=== PATIENT | male | born 1935 | race Caucasian/White ===

== ENCOUNTER 2016-10-27 14:43 | Outpatient (CLI) | payer MEDICARE ==
--- NOTE | 2016-10-27 15:56 | RAD ---
3 VIEWS THORACIC SPINE: Date: 10/27/16 HISTORY: Upper back pain. FINDINGS: AP, lateral, and coned-down views of thoracic spine demonstrate vertebroplasty changes seen in the T 11 vertebral body. The rest of the thoracic spine is grossly unremarkable. No evidence of significan t fractures seen acutely. There is some height loss also seen in the T10 vertebral body possibly rep resenting T10 fracture. Age of this is indeterminate. Correlation with bone scan may be of use as MR I likely is not possible due to the indwelling cardiac defibrillator. IMPRESSION: 1. T11 vertebroplasty. 2. Some height loss seen in the superior end plate of T10. This may represent a T10 compression fra cture of indeterminate age. POS: [facility]
--- NOTE | 2016-10-27 15:57 | RAD ---
AP, LATERAL AND CONE DOWN VIEWS LUMBAR SPINE 10/27/16 Three views lumbar spine demonstrate high grade compression fracture of the L1 vertebral body. This was seen on the patient's previous flexion and extension views lumbar spine from 07/30/16. The extent in marked L1 fracture is not significantly changed. Anterior osteophytes seen in the mid lumbar spine. IMPRESSION: Severe L1 compression fracture not significantly changed since the previous exam. Some kyphotic keith ges also seen of the thoracolumbar junction. POS: [facility]
== END 2016-10-27 14:44 | disposition home or self-care (01) ==
LOC: MADRAD 14:43
PROVIDERS: ATTEND Family Medicine
DX: M54.9 Dorsalgia, unspecified (principal); M40.295 Other kyphosis, thoracolumbar region; Z91.81 History of falling
CPT/HCPCS: 72072; 72100

== ENCOUNTER 2017-01-05 08:11 | Outpatient (CLI) | payer MEDICARE ==
[2017-01-05 10:43] LABS: ALT (SGPT) 20 U/L (8-55); AST (SGOT) 19 U/L (5-34); Albumin 4.1 g/dL (3.4-4.8); Alkaline Phosphatase 81 U/L (40-150); Anion Gap 14 mmol/L (10-20); BUN (Urea Nitrogen) 23 mg/dL (8.4-25.7); Bilirubin, Total 0.8 mg/dL (0.2-1.2); Calc. Creatinine Clearance 0 mL/min (70-130); Calcium 8.7 mg/dL (7.8-10.44); Carbon Dioxide 25 mmol/L (23-31); Cardiac Risk 2.7 (Less than 4.5); Chloride 107 mmol/L (98-107); Cholesterol 99 mg/dl (< 200 Desired); Estimated GFR-MDRD Greater than 90; Globulin 2.3 g/dL (2.4-3.5); Glucose 129 mg/dL (83-110); HDL Cholesterol 37 mg/dL (>60 Neg Risk); LDL Cholesterol, Calculated 45 mg/dL; Protein, Total 6.4 g/dL (5.8-8.1); Sodium 142 mmol/L (136-145); Triglycerides 83 mg/dL (Less than 150)
== END 2017-01-05 08:12 | disposition home or self-care (01) ==
LOC: MADLAB 08:11
PROVIDERS: ATTEND Internal Medicine Cardiovascular Disease
DX: E78.00 Pure hypercholesterolemia, unspecified (principal); E03.9 Hypothyroidism, unspecified
CPT/HCPCS: 36415; 80053; 80061; 84443

== ENCOUNTER 2017-03-03 17:49 | Outpatient (CLI) | payer MEDICARE ==
--- NOTE | 2017-03-03 19:52 | RAD ---
CHEST PA AND LATERAL: 03/03/17 HISTORY: 81-year-old male with chest pain. COMPARISON: 06/18/16. FINDINGS: Left ICD. Postop midline sternotomy. Heart size is minimally enlarged. No confluent pneumonia, overt edema or pleural effusion. Mild stable chronic lung changes. IMPRESSION: Minimal cardiomegaly and minimal stable chronic lung changes., particularly in the bases. No conflue nt pneumonia, acute edema or other active process. Stable from prior study. POS: [facility]
--- NOTE | 2017-03-03 19:56 | RAD ---
RIGHT RIBS TWO VIEWS: 03/03/17 HISTORY: 81-year-old male with right rib pain following a fall. Two views of the right ribs demonstrate very minimally displaced fractures of the right 6th and 7th lateral ribs. No pneumothorax or pleural effusion. IMPRESSION: Right 6th and 7th very minimally displaced rib fractures without pneumothorax or pleural effusion. POS: [facility]
== END 2017-03-03 17:50 | disposition home or self-care (01) ==
LOC: MADRAD 17:49
PROVIDERS: ATTEND Family Medicine
DX: R07.89 Other chest pain (principal); S22.41XA Multiple fractures of ribs, right side, initial encounter for closed fracture; I51.7 Cardiomegaly
CPT/HCPCS: 71020

== ENCOUNTER 2017-04-13 11:11 | Outpatient (CLI) | payer MEDICARE ==
[2017-04-13 12:09] LABS: ALT (SGPT) 20 U/L (8-55); AST (SGOT) 20 U/L (5-34); Alkaline Phosphatase 105 U/L (40-150); Anion Gap 12 mmol/L (10-20); BUN (Urea Nitrogen) 19 mg/dL (8.4-25.7); Bilirubin, Total 0.9 mg/dL (0.2-1.2); Calc. Creatinine Clearance 0 mL/min (70-130); Calcium 8.9 mg/dL (7.8-10.44); Carbon Dioxide 27 mmol/L (23-31); Chloride 104 mmol/L (98-107); Estimated GFR-MDRD 90; Globulin 2.5 g/dL (2.4-3.5); Glucose 117 mg/dL (83-110); Potassium 4.4 mmol/L (3.5-5.1); Protein, Total 6.5 g/dL (5.8-8.1); Sodium 139 mmol/L (136-145)
[2017-04-13 12:59] LABS: Hemoglobin 12.6 g/dL (14.0-18.0); Lymphocytes 41 % (21-51); MDiff Complete? YES; Macrocytosis SLIGHT = 6-15 cells (100X) (0-5/hpf); Mean Corpuscular HGB CONC 33.2 g/dL (32.0-36.0); Mean Corpuscular Hemoglobin 38.5 pg (27.0-31.0); Mean Corpuscular Volume 115.8 fl (80.0-94.0); Mean Platelet Volume 7.8 fL (7.4-10.4); Monocytes 5 % (0-10); Neutrophil 51 % (42-75); PLT Morphology Comment Appears Adequate; Platelet Count 154 thou/uL (130-400); RBC Distribution Width 14.1 % (11.5-14.5); Reactive Lymphocytes 3 % (0-10); Red Blood Cell (RBC) Count 3.28 mill/uL (4.70-6.10); White Blood Cell (WBC) Count 6.9 thou/uL (4.8-10.8)
--- NOTE | 2017-04-13 15:31 | RAD ---
CHEST TWO VIEWS HISTORY: Shortness of breath. COMPARISON: 03/03/2017 FINDINGS: Stable left-sided transvenous defibrillator. Stable configuration of the cardiac silhouette. Stabl e sternotomy wires. There is redemonstration of right rib fractures, which demonstrate subtle perio steal reaction, suggesting healing. There is no pneumothorax. Small left-sided pleural effusion ca nnot be excluded given the presence of the veil-like opacity. Since the previous exam, there is an increased density projecting over the right hilum, which may be in the right central airway. The po ssibility of an aspirated crown from a tooth is suggested. Better interrogation with CT is recommen ded. Previous vertebroplasty change in the distal thoracic spine is noted. There is moderate loss of vertebral body height. IMPRESSION: 1. Healing right rib fractures. No pneumothorax. 2. Possible aspiration of a crown, which is now in the right central airway. Better interrogation with CT is recommended. CODE T POS: [facility]
== END 2017-04-13 11:12 | disposition home or self-care (01) ==
LOC: MADLAB 11:11
PROVIDERS: ATTEND Family Medicine
DX: J69.8 Pneumonitis due to inhalation of other solids and liquids (principal); R06.2 Wheezing; S22.41XD Multiple fractures of ribs, right side, subsequent encounter for fracture with routine healing
CPT/HCPCS: 36415; 71020; 80053; 85025

== ENCOUNTER 2017-06-20 10:55 | Outpatient (CLI) | payer MEDICARE ==
--- NOTE | 2017-06-20 15:39 | CT ---
CT OF BRAIN PERFORMED WITHOUT CONTRAST ENHANCEMENT: History: Slurred speech, weakness. Comparison: 07-09-16 FINDINGS: There is generalized ventricular and sulcal prominence with decreased attenuation of the periventric ular white matter consistent with some chronic ischemic white matter change. There are no signs of i ntracerebral hemorrhage or extraaxial fluid collections. Mastoid air cells are clear. There is mucos al change in the left maxillary sinus. IMPRESSION: No acute intracranial abnormalities. POS: [facility]
== END 2017-06-20 10:56 | disposition home or self-care (01) ==
LOC: MADCT 10:55
PROVIDERS: ATTEND Family Medicine
DX: R47.81 Slurred speech (principal)
CPT/HCPCS: 70450

== ENCOUNTER 2018-07-30 10:10 | Outpatient (CLI) | payer MEDICARE ==
--- NOTE | 2018-07-30 11:18 | RAD ---
RIGHT FOOT THREE VIEWS: INDICATIONS: Right foot pain. COMPARISON: None. FINDINGS: No acute fracture or subluxation is evident. 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 IMPRESSION: No acute osseous abnormality. POS: [facility]
== END 2018-07-30 10:11 | disposition home or self-care (01) ==
LOC: MADRAD 10:10
PROVIDERS: ATTEND Family Medicine
DX: M79.671 Pain in right foot (principal); Z86.31 Personal history of diabetic foot ulcer

== ENCOUNTER 2019-02-14 12:54 | Outpatient (CLI) | payer MEDICARE ==
--- NOTE | 2019-02-14 13:13 | RAD ---
2 views chest history: Difficulty breathing. PA and lateral views of the chest demonstrates sternotomy wires seen. Previously noted radiopaque bul let fragment in the right heart has been surgically removed. A dual-lead intracardiac defibrillator is present. The lungs are well aerated. No evidence of active intrathoracic disease seen. No evidence of effusion s, pneumonia or pneumothorax seen. IMPRESSION: unremarkable 2 views chest.
== END 2019-02-14 12:55 | disposition home or self-care (01) ==
LOC: MADRAD 12:54
PROVIDERS: ATTEND Family Medicine
DX: R06.02 Shortness of breath (principal); R06.09 Other forms of dyspnea; R06.2 Wheezing
CPT/HCPCS: 71046

== ENCOUNTER 2019-09-11 11:47 | Outpatient (CLI) | payer MEDICARE ==
--- NOTE | 2019-09-11 12:08 | RAD ---
EXAM: 2 views of the right hip HISTORY: Right hip pain after fall 2 nights ago COMPARISON: None FINDINGS: 2 views of the right hip shows no evidence of acute fracture or dislocation. No degenerativ e changes are seen. No soft tissue swelling is present. IMPRESSION: No evidence of acute osseous abnormality.
--- NOTE | 2019-09-11 12:11 | RAD ---
Exam: One view pelvis HISTORY: Fall 2 nights ago. Pain FINDINGS: Intact bony pelvis. Patent and symmetric sacroiliac joints Intact bilateral obturator rings Left and right hip joint spaces preserved. Contour of both femoral heads are maintained. No evidence of fracture. Sacral alar are preserved. Lower lumbar spine is unremarkable IMPRESSION: No evidence of fracture. If the patient is unable to bear weight, consider CT.
== END 2019-09-11 11:48 | disposition home or self-care (01) ==
LOC: MADRAD 11:47
DX: M25.551 Pain in right hip (principal)
CPT/HCPCS: 72170

== ENCOUNTER 2019-10-02 10:13 | Outpatient (CLI) | payer MEDICARE ==
--- NOTE | 2019-10-02 10:47 | CT ---
Exam: Head CT without contrast HISTORY: Slurred speech. Fall. COMPARISON: 06/20/2017 FINDINGS: Hemorrhage: No intraparenchymal hemorrhage or extra-axial hematoma. Brain parenchyma: Cortical stark-white matter differentiation is preserved. No mass effect or midline shift. Basilar cisterns are patent. Ventricular system: Ventricles and sulci are patent and symmetric. Calvarium: Intact. Sinuses and mastoid air cells: There is retention cyst in the left maxillary sinus. IMPRESSION: No acute intracranial process.
[2019-10-02 11:36] LABS: ALT (SGPT) 23 U/L (8-55); AST (SGOT) 19 U/L (5-34); Albumin 4.1 g/dL (3.4-4.8); Alkaline Phosphatase 86 U/L (40-110); Anion Gap 15 mmol/L (10-20); BUN (Urea Nitrogen) 18 mg/dL (8.4-25.7); Bilirubin, Total 0.7 mg/dL (0.2-1.2); Calc. Creatinine Clearance 0 mL/min (70-130); Calcium 8.8 mg/dL (7.8-10.44); Carbon Dioxide 24 mmol/L (23-31); Cardiac Risk 2.7 (Less than 4.5); Chloride 104 mmol/L (98-107); Cholesterol 95 mg/dl (< 200 Desired); Estimated GFR-MDRD 61; Globulin 2.3 g/dL (2.4-3.5); Glucose 244 mg/dL (83-110); HDL Cholesterol 35 mg/dL (>60 Neg Risk); LDL Cholesterol, Calculated 39 mg/dL; Potassium 4.1 mmol/L (3.5-5.1); Protein, Total 6.4 g/dL (5.8-8.1); Sodium 139 mmol/L (136-145); Triglycerides 103 mg/dL (Less than 150)
== END 2019-10-02 10:14 | disposition home or self-care (01) ==
LOC: MADLAB 10:13
PROVIDERS: ATTEND Internal Medicine Cardiovascular Disease
DX: E78.00 Pure hypercholesterolemia, unspecified (principal); E03.9 Hypothyroidism, unspecified; R29.6 Repeated falls; R47.81 Slurred speech
CPT/HCPCS: 36415; 70450; 80053; 80061; 84443

== ENCOUNTER 2020-01-24 09:16 | Outpatient (CLI) | payer MEDICARE ==
[2020-01-24 09:59] LABS: ALT (SGPT) 14 U/L (8-55); AST (SGOT) 16 U/L (5-34); Albumin 3.9 g/dL (3.4-4.8); Alkaline Phosphatase 66 U/L (40-110); Anion Gap 13 mmol/L (10-20); BUN (Urea Nitrogen) 15 mg/dL (8.4-25.7); Bilirubin, Total 0.6 mg/dL (0.2-1.2); Calc. Creatinine Clearance 0 mL/min (70-130); Calcium 8.6 mg/dL (7.8-10.44); Carbon Dioxide 27 mmol/L (23-31); Cardiac Risk 3.9 (Less than 4.5); Chloride 104 mmol/L (98-107); Cholesterol 126 mg/dl (< 200 Desired); Estimated GFR-MDRD 79; Globulin 2.2 g/dL (2.4-3.5); Glucose 139 mg/dL (83-110); HDL Cholesterol 32 mg/dL (>60 Neg Risk); LDL Cholesterol, Calculated 68 mg/dL; Potassium 4.3 mmol/L (3.5-5.1); Protein, Total 6.1 g/dL (5.8-8.1); Sodium 140 mmol/L (136-145); Triglycerides 131 mg/dL (Less than 150)
== END 2020-01-24 09:17 | disposition home or self-care (01) ==
LOC: MADLAB 09:16
PROVIDERS: ATTEND Internal Medicine Cardiovascular Disease
DX: E78.00 Pure hypercholesterolemia, unspecified (principal); E03.9 Hypothyroidism, unspecified
CPT/HCPCS: 80053; 80061; 84443

== ENCOUNTER 2020-07-28 15:50 | Outpatient (CLI) | payer MEDICARE ==
[2020-07-28 16:52] LABS: ALT (SGPT) 16 U/L (8-55); AST (SGOT) 16 U/L (5-34); Albumin 4.1 g/dL (3.4-4.8); Alkaline Phosphatase 89 U/L (40-110); Anion Gap 15 mmol/L (10-20); BUN (Urea Nitrogen) 21 mg/dL (8.4-25.7); Bilirubin, Total 0.5 mg/dL (0.2-1.2); Calc. Creatinine Clearance 0 mL/min (70-130); Calcium 8.9 mg/dL (7.8-10.44); Carbon Dioxide 26 mmol/L (23-31); Cardiac Risk 3.6 (Less than 4.5); Chloride 105 mmol/L (98-107); Cholesterol 137 mg/dl (< 200 Desired); Estimated GFR-MDRD 77; Glucose 155 mg/dL (83-110); HDL Cholesterol 38 mg/dL (>60 Neg Risk); LDL Cholesterol, Calculated 71 mg/dL; Potassium 4.2 mmol/L (3.5-5.1); Protein, Total 6.1 g/dL (5.8-8.1); Sodium 142 mmol/L (136-145); Triglycerides 139 mg/dL (Less than 150)
== END 2020-07-28 15:51 | disposition home or self-care (01) ==
LOC: MADLABSP 15:50
PROVIDERS: ATTEND Internal Medicine Cardiovascular Disease
DX: E78.00 Pure hypercholesterolemia, unspecified (principal); E03.9 Hypothyroidism, unspecified
CPT/HCPCS: 80053; 80061; 84443

== ENCOUNTER 2021-05-25 13:22 | Outpatient (CLI) | payer MEDICARE | END 2021-05-25 13:23 | disposition home or self-care (01) | LOC: MADRAD 13:22 | PROVIDERS: ATTEND Family Medicine | DX: M54.5 Low back pain (principal) | CPT/HCPCS: 72110 ==

== ENCOUNTER 2022-02-17 17:43 | Outpatient (CLI) | payer MEDICARE | END 2022-02-17 17:44 | disposition home or self-care (01) | LOC: MADRAD 17:43 | PROVIDERS: ATTEND Family Medicine | DX: M25.551 Pain in right hip (principal); R07.89 Other chest pain; M25.512 Pain in left shoulder | CPT/HCPCS: 71046; 72170 ==

== ENCOUNTER 2022-10-07 16:43 | Outpatient (CLI) | payer MEDICARE | END 2022-10-07 16:44 | disposition home or self-care (01) | LOC: MADCT 16:43 | PROVIDERS: ATTEND Family Medicine | DX: R31.0 Gross hematuria (principal); Q61.02 Congenital multiple renal cysts; K57.30 Diverticulosis of large intestine without perforation or abscess without bleeding; I71.40 Abdominal aortic aneurysm, without rupture, unspecified | CPT/HCPCS: 74177 ==

== ENCOUNTER 2025-07-16 08:58 | Outpatient (CLI) | payer MEDICARE ==
[2025-07-16 09:40] LABS: ALT (SGPT) 15 U/L (Less than 45); AST (SGOT) 19 U/L (11-34); Albumin 3.9 g/dL (3.1-4.5); Alkaline Phosphatase 93 U/L (40-110); Anion Gap 16 mmol/L (10-20); BUN (Urea Nitrogen) 19 mg/dL (8.4-25.7); Bilirubin, Total 0.7 mg/dL (0.3-1.2); Calc. Creatinine Clearance 0 mL/min (70-130); Calcium 8.6 mg/dL (7.8-10.44); Carbon Dioxide 26 mmol/L (23-31); Cardiac Risk 3.2 (Less than 4.5); Chloride 103 mmol/L (98-107); Cholesterol 117 mg/dl (< 200 Desired); Globulin 2.3 g/dL (2.4-3.5); Glucose 124 mg/dL (83-110); HDL Cholesterol 37 mg/dL (>60 Neg Risk); LDL Cholesterol, Calculated 57 mg/dL; Potassium 3.6 mmol/L (3.5-5.1); Sodium 141 mmol/L (136-145); Triglycerides 114 mg/dL (Less than 150)
== END 2025-07-16 08:59 | disposition home or self-care (01) ==
LOC: MADLAB 08:58
PROVIDERS: ATTEND Internal Medicine Cardiovascular Disease
DX: Z48.812 Encounter for surgical aftercare following surgery on the circulatory system (principal); Z95.1 Presence of aortocoronary bypass graft
CPT/HCPCS: 80053; 80061